=== PATIENT | female | born 1965 | race Hispanic/Latino ===

== ENCOUNTER 2017-09-23 07:46 | Emergency (ER) | payer OTHER ==
[2017-09-23] MEDS ORDERED: LIDOCAINE HCL 2% VISCOUS 15 ML UDCUP ONE (08:01)
[2017-09-23] MEDS ORDERED: KETOROLAC TROMETHAMINE 30MG/ML ONE (08:01)
== END 2017-09-23 09:02 | disposition home or self-care (01) ==
LOC: EDH 07:46
DX: H66.92 Otitis media, unspecified, left ear (principal); Z90.49 Acquired absence of other specified parts of digestive tract; Z98.890 Other specified postprocedural states; Z88.6 Allergy status to analgesic agent; Z72.0 Tobacco use
CPT/HCPCS: 96372; 99283; J1885

== ENCOUNTER 2017-09-26 00:07 | Emergency (ER) | payer SELFPAY ==
[2017-09-26] MEDS ORDERED: LIDOCAINE HCL-MPF 1% 2ML VIAL ONE (00:32)
[2017-09-26] MEDS ORDERED: LIDOCAINE HCL 2% VISCOUS 15 ML UDCUP ONE ×2 (00:32→00:47)
[2017-09-26] MEDS ORDERED: CEFTRIAXONE SODIUM 1 GM ONE (00:33)
[2017-09-26] MEDS ORDERED: KETOROLAC TROMETHAMINE 60 MG/2 ML VIAL ONE (00:33)
== END 2017-09-26 01:25 | disposition home or self-care (01) ==
LOC: EDH 00:07
DX: H66.92 Otitis media, unspecified, left ear (principal); Z90.49 Acquired absence of other specified parts of digestive tract; Z98.890 Other specified postprocedural states
CPT/HCPCS: 96372 ×2; 99284; J0696; J1885; J3490

== ENCOUNTER 2019-07-27 13:40 | Emergency (ER) | payer SELFPAY ==
[2019-07-27] MEDS ORDERED: OCTYL 2-CYANOACRYLATE 1 EACH TP ONE (14:09)
[2019-07-27] MEDS ORDERED: TETANUS/DIPHTHERIA TOXOID [ADULT] 0.5 ML VIAL IM ONE (14:09)
== END 2019-07-27 15:06 | disposition home or self-care (01) ==
LOC: EDH 13:40
DX: S61.512A Laceration without foreign body of left wrist, initial encounter (principal); W27.8XXA Contact with other nonpowered hand tool, initial encounter; Y93.89 Activity, other specified; Y92.89 Other specified places as the place of occurrence of the external cause; Y99.9 Unspecified external cause status
CPT/HCPCS: 12001; 73100; 90471; 90714